=== PATIENT | male | born 1990 | race Caucasian/White ===

== ENCOUNTER 2018-10-02 02:15 | Emergency (ER) | payer MEDICAID, OTHER ==
[~2018-10-02] VITALS: Ht 170.2 cm; Wt 65.8 kg
[2018-10-02 07:07] LABS: Basophils # (auto) 0.1 uL; Eosinophils # (auto) 0.5 uL; Eosinophils % (auto) 4.6 % (0.0-7.0); Hematocrit 48.7 % (41.0-53.0); Hemoglobin 16.4 g/dL (13.5-17.5); Lymphocytes # (auto) 2.1 uL; Lymphocytes % (auto) 19.5 % (10.0-50.0); Mean Corpuscular Hemoglobin 30.2 pg (28.0-32.0); Mean Corpuscular Hgb Conc. 33.7 g/dL (32.0-36.0); Mean Corpuscular Volume 89.6 fL (80.0-100.0); Monocytes # (auto) 0.9 uL; Monocytes % (auto) 8.6 % (0.0-12.0); Neutrophils # (auto) 7.1 uL; Neutrophils % (auto) 66.3 % (37.0-80.0); Nucleated Red Blood Cells % 0.1 %; Platelet Count (auto) 231 10^3/uL (140-450); Red Blood Cells 5.43 10^6/uL (4.5-5.90); Red Cell Distribution Width 13.4 % (11.8-14.3); White Blood Cell 10.8 10^3/uL (4.4-10.8)
[2018-10-02 07:21] LABS: Calcium 8.7 mg/dL (8.5-10.1)
[2018-10-02 07:23] LABS: BUN/Creatinine Ratio 13.5
[2018-10-02 07:25] LABS: Total Protein 7.9 g/dL (6.4-8.2)
[2018-10-02 08:00] VITALS: BP 126/70
[2018-10-02] MEDS ORDERED: cefTRIAXone SOD 1,000 MG VL IM ONE (08:15)
[2018-10-02] MEDS ORDERED: TETANUS-DIPTH-ACEL PERTUSSIS 0.5ML SYRG IM ONE (08:15)
[2018-10-02] MEDS ORDERED: KETOROLAC TROMETH 60MG/2ML VIAL IM ONE (08:15)
[2018-10-02] MEDS ORDERED: CLINDAMYCIN 600 MG/4 ML VL IM ONE (08:15)
== END 2018-10-02 08:57 | disposition home or self-care (01) ==
LOC: ER 02:15
DX: L03.012 Cellulitis of left finger (principal); F17.210 Nicotine dependence, cigarettes, uncomplicated; F12.90 Cannabis use, unspecified, uncomplicated
CPT/HCPCS: 36415; 73120; 80053; 83605; 85025; 96372; 99284; J0696; J1885; 90471